=== PATIENT | female | born 1980 | race Hispanic/Latino ===

== ENCOUNTER 2017-09-17 12:59 | Emergency (ER) | payer SELFPAY ==
[2017-09-17 13:27] LABS: BILIRUBIN,URINE NEGATIVE (NEGATIVE); COLOR,URINE YELLOW (YELLOW); GLUCOSE, URINE (UA) >=1000 mg/dL (NEGATIVE); KETONES,URINE 15 mg/dL (NEGATIVE); LEUKOCYTE ESTERASE ,URINE NEGATIVE (NEGATIVE); NITRATE,URINE NEGATIVE (NEGATIVE); OCCULT BLOOD,URINE NEGATIVE (NEGATIVE); PH,URINE 5.5 (5.0-8.0); PROTEIN,URINE NEGATIVE (NEGATIVE); UROBILINOGEN,URINE 0.2 mg/dL (0.2-1.0)
[2017-09-17 13:28] LABS: APPEARANCE,URINE SLIGHTLY CLOUDY (CLEAR)
[2017-09-17 13:34] LABS: BACTERIA,URINE Few /HPF (None Seen); RBC,URINE None Seen /HPF (0-1); WBC,URINE 0-1 /HPF (0-1); YEAST,URINE BUDDING Few /HPF (None Seen)
[2017-09-17 13:35] LABS: SQUAMOUS EPITHELIAL CELL,UR Moderate /HPF (0-2)
== END 2017-09-17 15:51 | disposition home or self-care (01) ==
LOC: EDH 12:59
DX: K52.89 Other specified noninfective gastroenteritis and colitis (principal); E11.9 Type 2 diabetes mellitus without complications
CPT/HCPCS: 81001; 81025

== ENCOUNTER 2019-05-31 09:13 | Emergency (ER) | payer OTHER ==
[2019-05-31 09:40] LABS: BASOPHILS % (AUTO) 0.8 % (0.0-5.0); EOSINOPHILS % (AUTO) 0.9 % (0.0-8.0); HEMATOCRIT 36.2 % (36-48); LYMPHOCYTES % (AUTO) 23.4 % (21.0-51.0); MEAN CORPUSCULAR HGB CONC 31.8 g/dL (32.0-36.0); MEAN CORPUSCULAR VOLUME 81.9 fL (79-99); MONOCYTES % (AUTO) 6.1 % (3.0-13.0); NEUTROPHILS % (AUTO) 68.3 % (40.0-77.0); PLATELET COUNT (AUTO) 287 K/uL (130-400); RED BLOOD CELL COUNT(AUTO) 4.42 MIL/uL (4.00-5.50); RED CELL DISTRIBUTION WIDTH 13.2 % (11.0-15.5); WHITE BLOOD COUNT (AUTO) 6.6 K/uL (4.8-10.8)
== END 2019-05-31 10:31 | disposition home or self-care (01) ==
LOC: EDH 09:13
DX: N92.1 Excessive and frequent menstruation with irregular cycle (principal); E11.9 Type 2 diabetes mellitus without complications
CPT/HCPCS: 36415; 84702; 85025; 86900; 86901

== ENCOUNTER 2021-10-15 09:06 | Emergency (ER) | payer OTHER ==
[~2021-10-15] VITALS: Ht 160 cm; Wt 69.9 kg
[2021-10-15] MEDS ORDERED: FLUC150T PO (10:16)
[2021-10-15] MEDS ORDERED: CLOT15CR5 TP (10:16)
[2021-10-15 10:26] VITALS: BP 132/78
== END 2021-10-15 10:34 | disposition home or self-care (01) ==
LOC: EDH 09:06
DX: B37.3 Candidiasis of vulva and vagina (principal); E11.65 Type 2 diabetes mellitus with hyperglycemia
CPT/HCPCS: 82948

== ENCOUNTER 2021-11-20 12:51 | Emergency (ER) | payer OTHER ==
[~2021-11-20] VITALS: Ht 160 cm; Wt 72.6 kg
[~2021-11-20 12:51] MED LIST: CLOT15CR5 TP; FLUC150T PO
[2021-11-20 13:57] VITALS: BP 155/61
[2021-11-20 14:06] LABS: BASOPHILS % (AUTO) 0.6 % (0.0-5.0); EOSINOPHILS % (AUTO) 0.6 % (0.0-8.0); HEMATOCRIT 40.3 % (36-48); LYMPHOCYTES % (AUTO) 35.3 % (21.0-51.0); MEAN CORPUSCULAR HEMOGLOBIN 21.4 pg (27.0-33.0); MEAN CORPUSCULAR HGB CONC 29.8 g/dL (32.0-36.0); MEAN CORPUSCULAR VOLUME 71.8 fL (79-99); MONOCYTES % (AUTO) 6.7 % (3.0-13.0); NEUTROPHILS % (AUTO) 56.5 % (40.0-77.0); PLATELET COUNT (AUTO) 276 K/uL (130-400); RED BLOOD CELL COUNT(AUTO) 5.61 MIL/uL (4.00-5.50); RED CELL DISTRIBUTION WIDTH 17.1 % (11.0-15.5); WHITE BLOOD COUNT (AUTO) 6.7 K/uL (4.8-10.8)
[2021-11-20 14:16] LABS: HCG,QUAL RESULT NEGATIVE (NEGATIVE)
[2021-11-20 14:17] LABS: APPEARANCE,URINE Clear (CLEAR); BILIRUBIN,URINE Negative (NEGATIVE); COLOR,URINE Yellow (YELLOW); GLUCOSE, URINE (UA) 500 mg/dL (NEGATIVE); KETONES,URINE Negative (NEGATIVE); LEUKOCYTE ESTERASE ,URINE Negative (NEGATIVE); NITRATE,URINE Negative (NEGATIVE); OCCULT BLOOD,URINE Negative (NEGATIVE); PH,URINE 5.5 (5.0-8.0); PROTEIN,URINE Negative (NEGATIVE); UROBILINOGEN,URINE 0.2 mg/dL (0.2-1.0)
[2021-11-20 14:17] LABS: CREATININE 0.5 mg/dL (0.5-1.5); POTASSIUM 3.6 mmol/L (3.5-5.1)
[2021-11-20 14:26] LABS: BILIRUBIN,TOTAL 0.3 mg/dL (0.2-1.0); TOTAL PROTEIN, SERUM 8.3 g/dL (6.0-8.3)
[2021-11-20 14:41] LABS: BACTERIA,URINE Few /HPF (None Seen); MUCUS,URINE Few LPF (None Seen); SQUAMOUS EPITHELIAL CELL,UR Moderate /HPF (0-2); WBC,URINE 0-1 /HPF (0-1)
[2021-11-20] MEDS ORDERED: LOSA1TAB42 PO (14:51)
== END 2021-11-20 15:03 | disposition home or self-care (01) ==
LOC: EDH 12:51
DX: I10 Essential (primary) hypertension (principal); E11.65 Type 2 diabetes mellitus with hyperglycemia
CPT/HCPCS: 36415; 71045; 80053; 81001; 81025; 84484; 85025

== ENCOUNTER 2022-02-04 19:52 | Emergency (ER) | payer OTHER ==
[~2022-02-04] VITALS: Ht 157.5 cm; Wt 73.0 kg
[~2022-02-04 19:52] MED LIST changes: +LOSA1TAB42 PO
[2022-02-04] MEDS ORDERED: IBUPROFEN 600 MG TABLET ONE (20:17)
[2022-02-04] MEDS ORDERED: IBUPROFEN 600 MG TABLET PO ONE (20:30)
[2022-02-04] MEDS ORDERED: IBUP-2070 PO (20:46)
[2022-02-04 20:53] VITALS: BP 144/78
== END 2022-02-04 21:01 | disposition home or self-care (01) ==
LOC: EDH 19:52
DX: S90.122A Contusion of left lesser toe(s) without damage to nail, initial encounter (principal); E11.9 Type 2 diabetes mellitus without complications; I10 Essential (primary) hypertension; Z79.1 Long term (current) use of non-steroidal anti-inflammatories (NSAID); Z79.899 Other long term (current) drug therapy; X58.XXXA Exposure to other specified factors, initial encounter; Y93.89 Activity, other specified; Y92.89 Other specified places as the place of occurrence of the external cause; Y99.8 Other external cause status
CPT/HCPCS: 73660

== ENCOUNTER 2022-06-10 18:59 | Emergency (ER) | payer OTHER ==
[~2022-06-10 18:59] MED LIST changes: +IBUP-2070 PO
== END 2022-06-10 21:17 | disposition left against medical advice (07) ==
LOC: EDH 18:59
DX: M54.2 Cervicalgia (principal); Z53.21 Procedure and treatment not carried out due to patient leaving prior to being seen by health care provider